=== PATIENT | male | born 1945 | race Two or more races ===

== ENCOUNTER 2020-03-12 08:49 | Emergency (ER) | payer OTHER ==
[~2020-03-12] VITALS: Ht 167.6 cm; Wt 68.0 kg
[2020-03-12] MEDS ORDERED: ZESTRIL40 M1 (09:19)
== END 2020-03-12 12:27 | disposition home or self-care (01) ==
LOC: ER 08:49
DX: B34.9 Viral infection, unspecified (principal); Z03.818 Encounter for observation for suspected exposure to other biological agents ruled out

== ENCOUNTER 2025-02-22 20:28 | Emergency (ER) | payer OTHER ==
[~2025-02-22] VITALS: Ht 167.6 cm; Wt 63.5 kg
[~2025-02-22 20:28] MED LIST: ZESTRIL40 M1
[2025-02-22 20:56] VITALS: BP 172/90; O2SAT 98
[2025-02-22] MEDS ORDERED: KETOROLAC TROMETHAMINE 30 MG VIAL IV ONE (22:00)
[2025-02-22] MEDS ORDERED: ONDANSETRON HCL 2 MG/ML VIAL IV ONE (22:00)
[2025-02-22] MEDS ORDERED: FAMOTIDINE/PF 20 MG/2 ML VIAL IV ONE (22:00)
[2025-02-22] MEDS ORDERED: 0.9 % SODIUM CHLORIDE 1,000 ML IV ONE (22:00)
[2025-02-22] MEDS ORDERED: ONDANSETRON HCL 2 MG/ML VIAL ONE (22:08)
[2025-02-22] MEDS ORDERED: FAMOTIDINE/PF 20 MG/2 ML VIAL ONE (22:08)
[2025-02-22] MEDS ORDERED: KETOROLAC TROMETHAMINE 30 MG VIAL ONE (22:08)
[2025-02-22 23:17] LABS: BASO % 0.4 % (0.1-1.2); EOS # 0.03 (0.04-0.54); EOS % 0.3 % (0.7-7.0); LYMPH # 1.59 (1.18-3.74); LYMPH % 13.5 % (19.3-53.1); MEAN PLATELET VOLUME 12.00 fl (9.4-12.4); MONO # 0.88 (0.24-0.82); MONO % 7.5 % (4.7-12.5); NEUT # 9.17 (1.56-6.13); NEUT % 78.0 % (34.0-71.1); RED CELL DISTRIBUTION WIDTH 14.0 % (11.6-14.4)
[2025-02-23 01:40] LABS: URINE APPEARANCE Clear; URINE BILIRRUBIN Negative (NEGATIVE); URINE BLOOD Negative; URINE COLOR Dark Yellow; URINE GLUCOSE Negative (NEGATIVE); URINE KETONE 15 (NEGATIVE); URINE LEUKOCYTE Negative; URINE NITRATE Negative; URINE PROTEIN 30 (NEGATIVE); URINE UROBILINOGEN 0.2 E.U./dl
[2025-02-23 01:43] LABS: URINE BACTERIA 69.5 uL (0.0-1933); URINE EPITHELIAL CELLS 3.6 uL (0.0-38.8); URINE RBC 34.3 uL (0.0-20.8)
[2025-02-23 01:55] LABS: URINE CAST 0.00 uL (0.0-1.40); URINE CRYSTALS MANY /HPF; URINE WBC 1.6 uL (0.0-23.2)
[2025-02-23 03:19] LABS: ALT/SGPT 146.0 U/L (12-78); AST/SGOT 107.0 U/L (15-37); BILIRUBIN TOTAL 1.29 mg/dL (0.3-1.2); BUN CREA RATIO 20.0 (7.0-25.0); CREATININE SERUM 1.11 mg/dL (0.70-1.30); GFR 63.58; GLOBULINA 2.8 G/DL (2.4-3.5); GLUCOSE FASTING 132.0 mg/dL (65-100); OSMOLALITY SERUM 285.0 MOSM/KG (275-295)
[2025-02-23] MEDS ORDERED: PROTONIX40 MG PO (07:13)
[2025-02-23] MEDS ORDERED: LEVSIN/SL0.125 MG SL (07:13)
[2025-02-23] MEDS ORDERED: CEPHALEXIN500 MG PO (07:13)
== END 2025-02-23 07:46 ==
LOC: ER 20:28
PROVIDERS: General Practice
DX: R10.9 Unspecified abdominal pain (principal); I10 Essential (primary) hypertension; E78.49 Other hyperlipidemia; K81.9 Cholecystitis, unspecified
CPT/HCPCS: 36415; 74176; 76700; 96365; 96366; 99284; J1885; J2405; J3490; J7030